=== PATIENT | female | born 1995 | race African-American/Black ===

== ENCOUNTER 2019-03-31 14:51 | Inpatient (IN) ==
[2019-03-31] MEDS: LACTATED RINGERS 1,000 ML IV SCH ×2 (15:30→20:22)
[2019-03-31] MEDS ORDERED: MEPERIDINE 50 MG/1 ML VIAL IV PRN (15:33)
[2019-03-31] MEDS ORDERED: BUTORPHANOL 2 MG/ML VIAL IV PRN (15:33)
[2019-03-31] MEDS ORDERED: ONDANSETRON 4 MG/2 ML VIAL IV PRN (15:33)
[2019-03-31] MEDS ORDERED: DINOPROSTONE VAG GEL 10 MG SYRINGE VAG ONE (15:36)
[2019-03-31 16:32] LABS: Basophils % 0.3 % (0.0-0.8); Eosinophils # 0.1 10*3/uL (0.0-0.87); Eosinophils % 0.4 % (0.00-10.9); Hematocrit 28.7 VOL% (35.7-47.0); Immature Granulocytes % 0.6 %; Immature Granulocytes Absolute 0.09 #; Lymphocytes % 14.5 % (21.3-54.2); Mean Corpuscular HGB Conc 27.2 GM/DL (32-36); Mean Corpuscular Volume 71.2 FL (87-102); Mean Platelet Volume 9.5 FL (9.6-12.0); NRBC # 0.03 10*3/uL; Neutrophils % 76.2 % (38.7-73.9); Platelet Count 366 T/CUMM (130-400); Red Blood Count 4.03 MC/CUMM (3.8-5.5); Red Cell Distribution Width 18.3 % (9.3-17.3)
[2019-03-31 16:35] LABS: Hemoglobin 7.8 GM/DL (12.0-16.0)
[2019-03-31] MEDS ORDERED: diphenhydrAMINE 50 MG/1 ML VIAL IV PRN ×2 (18:57)
[2019-03-31] MEDS ORDERED: hydrOXYzine HCL 25 MG/1 ML VIAL IM PRN (18:57)
[2019-03-31] MEDS ORDERED: NALOXONE 0.4 MG/ML VIAL IV PRN (18:57)
[2019-03-31] MEDS ORDERED: ePHEDrine 50 MG/ML AMP IV PRN (18:57)
[2019-03-31] MEDS ORDERED: FAMOTIDINE 20 MG/2 ML VIAL IV ONE (19:00)
[2019-03-31] MEDS ORDERED: CITRIC ACID/SODIUM CITRATE 30 ML UDCUP PO ONE (19:00)
[2019-03-31] MEDS: fentaNYL 2 MCG/ROPIV 0.2% EPID 100 ML EPIDURAL SCH (21:33)
[2019-04-01] MEDS ORDERED: OXYTOCIN/LR 20 UNIT/1,000 ML BAG IV SCH (02:00)
[2019-04-01 02:26] LABS: Apearance,Urine CLEAR (Clear); Bilirubin,Urine Negative (Negative); Blood, Urine Large mg/dL (Negative); Glucose,Urine (UA) Negative (Negative); Hyaline Casts,Urine 1 /LPF (0-3); Ketones,Urine Negative (Negative); Nitrite,Urine Negative (Negative); Protein,Urine Negative; RBC,Urine 58 /HPF (0-4); Squamous Epithelial Cell,Urine Occasional /HPF (0-10); Urine Color Yellow (Yellow); Urine Specific Gravity 1.009 (1.001-1.035); Urine Urobilinogen < 2.0 EU/DL (0.2-1.0); WBC,Urine 34 /HPF (0-6)
[2019-04-01] MEDS: LACTATED RINGERS 1,000 ML IV SCH (03:18)
[2019-04-01] MEDS: fentaNYL 2 MCG/ROPIV 0.2% EPID 100 ML EPIDURAL SCH (05:38)
[2019-04-01] MEDS ORDERED: miSOPROStol 200 MCG TABLET ONE (06:40)
[2019-04-01] MEDS ORDERED: METHYLERGONOVINE 0.2 MG/1 ML AMP ONE (06:41)
[2019-04-01] MEDS ORDERED: CARBOPROST TROMETHAMINE 250 MCG/ML AMP IM ONE (06:41)
[2019-04-01] MEDS ORDERED: ceFAZolin 3,000 MG in SYRINGE 1 EACH IV ONE (07:06)
[2019-04-01] MEDS ORDERED: OXYTOCIN 10 UNIT/ML VIAL IM ONE (07:08)
[2019-04-01] MEDS ORDERED: OXYTOCIN/LR 30 UNIT/1,000 ML BAG IV ONE (07:08)
[2019-04-01] MEDS ORDERED: SODIUM CHLORIDE 0.9% 1,000 ML IV PRN (07:54)
[2019-04-01 08:30] LABS: Cord Arterial Blood HCO3 20.5 MMOL/L
[2019-04-01] MEDS ORDERED: ONDANSETRON 4 MG/2 ML VIAL IV PRN (08:37)
[2019-04-01] MEDS ORDERED: RHO(D) IMMUNE GLOBULIN 300 MCG SYRINGE IM ONE (08:37)
[2019-04-01] MEDS ORDERED: SIMETHICONE CHEW 80 MG TABLET PO PRN (08:37)
[2019-04-01] MEDS ORDERED: ACETAMINOPHEN 325 MG TABLET PO PRN (08:37)
[2019-04-01] MEDS ORDERED: OXYTOCIN/LR 20 UNIT/1,000 ML BAG IV ONE (08:37)
[2019-04-01] MEDS ORDERED: MORPHINE 10 MG/10 ML VIAL ONE (08:46)
[2019-04-01] MEDS ORDERED: LIDOCAINE MPF 2% /EPI 20 ML VIAL ONE (08:46)
[2019-04-01] MEDS ORDERED: LACTATED RINGERS 1,000 ML IV SCH ×2 (09:00→19:00)
[2019-04-01] MEDS ORDERED: ceFAZolin 1,000 MG in SYRINGE 1 EACH IV SCH (09:00)
[2019-04-01] MEDS: DOCUSATE SODIUM 100 MG CAPSULE PO SCH (18:55)
[2019-04-01] MEDS: ceFAZolin 1,000 MG in SYRINGE 1 EACH IV SCH (18:56)
[2019-04-01] MEDS: MULTIVITAMIN (PRENATAL) TABLET PO SCH (18:56)
[2019-04-01 21:36] LABS: Basophils # 0.1 10*3/uL (0.0-0.2); Basophils % 0.2 % (0.0-0.8); Eosinophils % 0.1 % (0.00-10.9); Hematocrit 31.4 VOL% (35.7-47.0); Hemoglobin 8.9 GM/DL (12.0-16.0); Lymphocytes # 1.9 10*3/uL (1.4-4.0); Mean Corpuscular HGB Conc 28.3 GM/DL (32-36); Mean Corpuscular Volume 73.9 FL (87-102); Mean Platelet Volume 9.6 FL (9.6-12.0); Monocytes % 9.5 % (1.7-12.7); NRBC # 0.02 10*3/uL; Neutrophils % 80.2 % (38.7-73.9); Platelet Count 272 T/CUMM (130-400); Red Blood Count 4.25 MC/CUMM (3.8-5.5); Red Cell Distribution Width 19.2 % (9.3-17.3)
[2019-04-01 22:39] LABS: Lymphocytes 7 % (20-55); Segmented Neutrophils 86 % (50-85); Total Cells Counted 100
[2019-04-01 22:42] LABS: Anisocytosis 1+; Hypochromasia Slight; Microcytosis 1+; Polychromasia Few
[2019-04-01 22:43] LABS: Platelet Estimate Normal; Stomatocytes Few; Target Cells Slight
[2019-04-02] MEDS ORDERED: KETOROLAC 30 MG/1 ML VIAL IV PRN (01:15)
[2019-04-02] MEDS: DOCUSATE SODIUM 100 MG CAPSULE PO SCH ×3 (01:26→21:13)
[2019-04-02] MEDS: ceFAZolin 1,000 MG in SYRINGE 1 EACH IV SCH (01:34)
[2019-04-02 06:18] LABS: Basophils # 0.1 10*3/uL (0.0-0.2); Basophils % 0.3 % (0.0-0.8); Eosinophils # 0.1 10*3/uL (0.0-0.87); Eosinophils % 0.3 % (0.00-10.9); Hematocrit 30.1 VOL% (35.7-47.0); Hemoglobin 8.7 GM/DL (12.0-16.0); Immature Granulocytes % 0.7 %; Immature Granulocytes Absolute 0.13 #; Lymphocytes # 2.5 10*3/uL (1.4-4.0); Lymphocytes % 13.9 % (21.3-54.2); Mean Corpuscular HGB Conc 28.9 GM/DL (32-36); Mean Corpuscular Volume 73.1 FL (87-102); Monocytes % 9.1 % (1.7-12.7); Neutrophils % 75.7 % (38.7-73.9); Platelet Count 233 T/CUMM (130-400); Red Blood Count 4.12 MC/CUMM (3.8-5.5); Red Cell Distribution Width 19.2 % (9.3-17.3); White Blood Count 17.6 T/CUMM (4-12)
[2019-04-02 06:39] LABS: Hypochromasia 1+; Ovalocytes Slight; Platelet Estimate Adequate
[2019-04-02] MEDS: METOCLOPRAMIDE 10 MG TABLET PO SCH ×3 (09:35→23:45)
[2019-04-02] MEDS: MULTIVITAMIN (PRENATAL) TABLET PO SCH (09:36)
[2019-04-02] MEDS: IBUPROFEN 800 MG TABLET PO PRN (17:40)
[2019-04-02] MEDS: MAGNESIUM HYDROXIDE SUSP 30 ML UDCUP PO PRN (23:43)
[2019-04-03] MEDS: METOCLOPRAMIDE 10 MG TABLET PO SCH ×3 (03:07→16:45)
[2019-04-03] MEDS: IBUPROFEN 800 MG TABLET PO PRN ×2 (06:49→15:30)
[2019-04-03] MEDS ORDERED: MAGNESIUM CITRATE 300 ML BOTTLE PO ONE (07:18)
[2019-04-03] MEDS ORDERED: FERROUS SULFATE 325 MG TABLET PO SCH (09:00)
[2019-04-03] MEDS: DOCUSATE SODIUM 100 MG CAPSULE PO SCH (09:13)
[2019-04-03] MEDS: MAGNESIUM HYDROXIDE SUSP 30 ML UDCUP PO PRN (09:13)
[2019-04-03] MEDS: MULTIVITAMIN (PRENATAL) TABLET PO SCH (09:13)
[2019-04-03] MEDS ORDERED: DIPH/TET/ACEL PERT BOOSTER VACCINE 0.5 ML VIAL IM ONE (13:14)
[2019-04-03 16:04] VITALS: BP 136/84
[2019-04-03] MEDS ORDERED: BISACODYL 10 MG SUPP RECTAL ONE (17:47)
== END 2019-04-03 20:53 | disposition home or self-care (01) | DRG 540 ==
LOC: N.LDOUT 14:51 → N.LD 14:55 → N.OB 04-01 15:26
PROVIDERS: ADMIT Obstetrics & Gynecology; ATTEND Obstetrics & Gynecology
PROC: LDCSECT (ICD-10-PCS; 2019-04-01 07:30)